=== PATIENT | female | born 1965 | race Caucasian/White ===

== ENCOUNTER → 2016-12-30 | Outpatient (CLI) | payer BC ==
[2016-12-30 15:53] LABS: BUN 11 mg/dL (7-18)
[2016-12-30 15:54] LABS: GFR (ESTIMATED) 58 ML/MIN (59-)
== END ==
LOC: CARL-LAB 06:58
PROVIDERS: Internal Medicine Adolescent Medicine
DX: E78.5 Hyperlipidemia, unspecified (principal)